=== PATIENT | female | born 1995 | race Caucasian/White ===

== ENCOUNTER → 2020-08-14 | Outpatient (CLI) | payer OTHER ==
--- NOTE | 2020-08-14 15:58 | REP ---
INDICATION: PAIN IN RIGHT KNEE COMPARISON: None. TECHNIQUE: AP, lateral, bilateral oblique and sunrise views. FINDINGS: The osseous structures and joint spaces are intact and normal. There is no evidence for acute fracture or dislocation. No joint effusion is appreciated. Surrounding soft tissues are unremarkable. No subcutaneous emphysema or radiodense foreign body. IMPRESSION: Normal age-appropriate right knee examination. <Electronically signed by Valente Mccarty > 08/14/20 1207
== END ==
LOC: M RAD 11:44
PROVIDERS: ATTEND Physician Assistant
DX: M25.561 Pain in right knee (principal)

== ENCOUNTER 2021-08-14 18:09 | Emergency (ER) | payer OTHER ==
[~2021-08-14] VITALS: Ht 157.5 cm; Wt 70.0 kg
[2021-08-14] MEDS ORDERED: CONC27TA4 PO (18:18)
[2021-08-14] MEDS ORDERED: ALBU8.5H (18:18)
[2021-08-14] MEDS ORDERED: ASMA16.7 (18:18)
[2021-08-14] MEDS ORDERED: NORE1TAB73 (18:18)
[2021-08-14] MEDS ORDERED: METH27TA5 (18:18)
[2021-08-14 19:20] LABS: BASO % 0.5 % (0.0-1.0); EOS # 0.1 10^3/uL (0.0-0.5); EOS % 0.9 % (0.0-3.0); HEMATOCRIT 41.7 % (36.0-47.0); HEMOGLOBIN 13.6 g/dl (12.0-15.5); LYMPH # 2.1 10^3/uL (1.5-5.0); LYMPH % 27.6 % (24.0-44.0); MEAN CORPUSCULAR HEMOGLOBIN 28.3 pg (27.0-33.0); MEAN CORPUSCULAR HGB CONC 32.6 g/dl (32.0-36.5); MEAN CORPUSCULAR VOLUME 86.7 fl (80.0-96.0); MONO # 0.5 10^3/uL (0.0-0.8); MONO % 6.8 % (2.0-8.0); NEUTROPHILS # 4.8 10^3/uL (1.5-8.5); NEUTROPHILS % 64.1 % (36.0-66.0); PLATELET COUNT, AUTOMATED 420 10^3/uL (150-450); RED BLOOD COUNT 4.81 10^6/uL (4.00-5.40); WHITE BLOOD COUNT 7.5 10^3/uL (4.0-10.0)
[2021-08-14 20:07] LABS: CK-MB VALUE MASS < 1.0 NG/ML (<3.6); CPK CREATINE PHOSPHOKINASE 259 U/L (26-192); MB/CK RELATIVE INDEX 0.39 (< OR =4)
[2021-08-14 21:18] LABS: ALBUMIN 4.1 GM/DL (3.2-5.2); ALT/SGPT 23 U/L (12-78); BILIRUBIN,DIRECT 0.1 MG/DL (0.0-0.2); BILIRUBIN,TOTAL 0.3 MG/DL (0.2-1.0); BLOOD UREA NITROGEN 13 MG/DL (7-18); CALCIUM LEVEL 9.3 MG/DL (8.5-10.1); CARBON DIOXIDE LEVEL 27 MEQ/L (21-32); CHLORIDE LEVEL 109 MEQ/L (98-107); CREATININE FOR GFR 0.83 MG/DL (0.55-1.30); GLOMERULAR FILTRATION RATE > 60.0 (>60); GLUCOSE, FASTING 87 MG/DL (70-100); LIPASE 68 U/L (73-393); POTASSIUM SERUM 3.9 MEQ/L (3.5-5.1); SODIUM LEVEL 142 MEQ/L (136-145); THYROID STIMULATING HORMONE 0.646 uIU/ML (0.358-3.740); TOTAL PROTEIN 7.1 GM/DL (6.4-8.2)
[2021-08-14 22:37] VITALS: BP 116/77
== END 2021-08-14 22:38 | disposition home or self-care (01) ==
LOC: EDBD 18:09 → M ED 18:09
DX: U07.1 COVID-19 (principal); R07.9 Chest pain, unspecified; I45.10 Unspecified right bundle-branch block; J45.909 Unspecified asthma, uncomplicated; F90.9 Attention-deficit hyperactivity disorder, unspecified type; Q21.0 Ventricular septal defect; Z79.51 Long term (current) use of inhaled steroids; Z79.899 Other long term (current) drug therapy

== ENCOUNTER 2021-08-29 16:26 | Emergency (ER) | payer OTHER ==
[~2021-08-29] VITALS: Ht 157.5 cm; Wt 70.7 kg
[~2021-08-29 16:26] MED LIST: ALBU8.5H; ASMA16.7; CONC27TA4 PO; METH27TA5; NORE1TAB73
[2021-08-29] MEDS ORDERED: NS 1,000 ML IV ONE (17:00)
[2021-08-29] MEDS ORDERED: KETOROLAC 30 MG/ML 1ML VIAL IV ONE (17:00)
[2021-08-29 17:32] LABS: BASO % 0.4 % (0.0-1.0); EOS # 0.1 10^3/uL (0.0-0.5); EOS % 1.4 % (0.0-3.0); HEMATOCRIT 39.5 % (36.0-47.0); HEMOGLOBIN 12.9 g/dl (12.0-15.5); LYMPH # 1.3 10^3/uL (1.5-5.0); LYMPH % 17.8 % (24.0-44.0); MEAN CORPUSCULAR HEMOGLOBIN 28.7 pg (27.0-33.0); MEAN CORPUSCULAR HGB CONC 32.7 g/dl (32.0-36.5); MEAN CORPUSCULAR VOLUME 87.8 fl (80.0-96.0); MONO # 0.8 10^3/uL (0.0-0.8); MONO % 10.4 % (2.0-8.0); NEUTROPHILS # 5.1 10^3/uL (1.5-8.5); NEUTROPHILS % 69.7 % (36.0-66.0); PLATELET COUNT, AUTOMATED 375 10^3/uL (150-450); WHITE BLOOD COUNT 7.3 10^3/uL (4.0-10.0)
[2021-08-29 18:15] LABS: ALBUMIN 4.1 GM/DL (3.2-5.2); ALT/SGPT 25 U/L (12-78); BILIRUBIN,DIRECT < 0.1 MG/DL (0.0-0.2); BILIRUBIN,TOTAL 0.2 MG/DL (0.2-1.0); C REACTIVE PROTEIN QUANTITATIV 1.86 MG/DL (0.00-0.30); FREE T4 1.07 NG/DL (0.76-1.46); LIPASE 107 U/L (73-393); NT-PRO BNP 62 PG/ML (<125); TOTAL PROTEIN 7.3 GM/DL (6.4-8.2)
[2021-08-29 18:49] LABS: ERYTHROCYTE SEDIMENTATION RATE 11 mm/hr (0-20)
[2021-08-29] MEDS ORDERED: IBUP80TA PO (19:41)
[2021-08-29 20:17] VITALS: BP 115/56
== END 2021-08-29 20:21 | disposition home or self-care (01) ==
LOC: M ED 16:26
DX: R07.89 Other chest pain (principal); Z86.16 Personal history of COVID-19; I45.19 Other right bundle-branch block; J45.909 Unspecified asthma, uncomplicated; F90.9 Attention-deficit hyperactivity disorder, unspecified type; Z79.899 Other long term (current) drug therapy
CPT/HCPCS: 71046; 80047; 80076; 82550; 83690; 83880; 84439; 84443; 84702; 85025; 85379; 85652; 86140; 93005; 96361; 96374; 99284; J1885

== ENCOUNTER 2022-05-10 23:28 | Emergency (ER) | payer OTHER ==
[~2022-05-10] VITALS: Ht 157.5 cm; Wt 68.2 kg
[~2022-05-10 23:28] MED LIST changes: +IBUP80TA PO
[2022-05-11 00:28] LABS: BASO % 0.4 % (0.0-1.0); EOS # 0.1 10^3/uL (0.0-0.5); EOS % 1.5 % (0.0-3.0); HEMATOCRIT 38.6 % (36.0-47.0); HEMOGLOBIN 12.6 g/dl (12.0-15.5); LYMPH % 24.5 % (24.0-44.0); MEAN CORPUSCULAR HEMOGLOBIN 28.6 pg (27.0-33.0); MEAN CORPUSCULAR HGB CONC 32.6 g/dl (32.0-36.5); MEAN CORPUSCULAR VOLUME 87.5 fl (80.0-96.0); MONO # 0.9 10^3/uL (0.0-0.8); MONO % 10.6 % (2.0-8.0); NEUTROPHILS % 62.1 % (36.0-66.0); PLATELET COUNT, AUTOMATED 369 10^3/uL (150-450); RED BLOOD COUNT 4.41 10^6/uL (4.00-5.40); WHITE BLOOD COUNT 8.1 10^3/uL (4.0-10.0)
[2022-05-11 01:02] LABS: ALKALINE PHOSPHATASE 48 U/L (46-116); ALT/SGPT 15 U/L (7.0-40); AST/SGOT 14 U/L (<34); BILIRUBIN,DIRECT < 0.1 MG/DL (<0.4); BILIRUBIN,TOTAL 0.2 MG/DL (0.3-1.2); BLOOD UREA NITROGEN 11 MG/DL (9-23); CALCIUM LEVEL 9.5 MG/DL (8.5-10.1); CARBON DIOXIDE LEVEL 25 MMOL/L (20-31); CHLORIDE LEVEL 107 MMOL/L (98-107); CREATININE FOR GFR 0.86 MG/DL (0.55-1.30); GLOMERULAR FILTRATION RATE > 60.0 (>60); GLUCOSE, FASTING 131 MG/DL (60-100); LIPASE 34 U/L (12-53); POTASSIUM SERUM 4.2 MMOL/L (3.5-5.1); SODIUM LEVEL 142 MMOL/L (136-145); TOTAL PROTEIN 6.5 G/DL (5.7-8.2)
[2022-05-11 01:58] LABS: CK-MB VALUE MASS < 1.0 NG/ML (<3.6); CPK CREATINE PHOSPHOKINASE 75 U/L (34-145); MB/CK RELATIVE INDEX 1.33 (< OR =4)
[2022-05-11 05:01] VITALS: BP 157/81
[2022-05-11] MEDS ORDERED: KETOROLAC 60MG 2ML VIAL IM ONE (05:15)
[2022-05-11] MEDS ORDERED: OMEPRAZOLE 20MG CAP PO ONE (05:15)
[2022-05-11] MEDS ORDERED: OMEP40CA4 PO (05:19)
[2022-05-11] MEDS ORDERED: NAPR-837 PO (05:19)
== END 2022-05-11 05:44 | disposition home or self-care (01) ==
LOC: M ED 23:28
DX: R07.89 Other chest pain (principal); R94.31 Abnormal electrocardiogram [ECG] [EKG]; J45.909 Unspecified asthma, uncomplicated; Z79.51 Long term (current) use of inhaled steroids; Z79.899 Other long term (current) drug therapy
CPT/HCPCS: 36415; 71045; 80048; 80076; 82550; 82553; 83690; 85025; 86140; 93005; 96372; 99284; J1885

== ENCOUNTER 2024-05-08 14:12 | Emergency (ER) | payer OTHER ==
[~2024-05-08 14:12] MED LIST changes: -ASMA16.7; +MOME13HF4; +NAPR-837 PO; +OMEP40CA4 PO
[2024-05-08] MEDS ORDERED: JUNE1TAB (14:29)
[2024-05-08] MEDS ORDERED: MONT10TA97 (14:29)
[2024-05-08] MEDS ORDERED: GABA-1172 (14:29)
[2024-05-08] MEDS ORDERED: HYDR-3363 (14:29)
[2024-05-08 17:45] VITALS: BP 137/86; TEMP 99.3; O2SAT 98
== END 2024-05-08 18:00 | disposition home or self-care (01) ==
LOC: M ED 14:12 → EDBD 14:12 → M ED 18:00
DX: S20.214A Contusion of middle front wall of thorax, initial encounter (principal); Y92.9 Unspecified place or not applicable; Y93.9 Activity, unspecified; Y99.0 Civilian activity done for income or pay; W50.0XXA Accidental hit or strike by another person, initial encounter; I45.81 Long QT syndrome; I45.19 Other right bundle-branch block; J45.909 Unspecified asthma, uncomplicated; F90.9 Attention-deficit hyperactivity disorder, unspecified type; Z79.51 Long term (current) use of inhaled steroids; Z79.899 Other long term (current) drug therapy

== ENCOUNTER → 2024-07-19 | Outpatient (CLI) | payer OTHER ==
[~2024-07-19] MED LIST changes: +GABA-1172; +HYDR-3363; +JUNE1TAB; +MONT10TA97
== END ==
LOC: M PLAIMG 08:22
PROVIDERS: ATTEND Physician Assistant
DX: J18.9 Pneumonia, unspecified organism (principal)

== ENCOUNTER → 2024-08-10 | Outpatient (CLI) | payer OTHER | LOC: M PLAIMG 09:44 | PROVIDERS: ATTEND Physician Assistant | DX: J18.9 Pneumonia, unspecified organism (principal) ==